=== PATIENT | female | born 2000 | race Caucasian/White ===

== ENCOUNTER 2019-06-09 07:03 | Outpatient (CLI) | payer OTHER, SELFPAY ==
--- NOTE | ~2019-06-09 | CT_ITS ---
EXAMINATION: CT abdomen pelvis w con EXAM DATE: 06/09/2019 07:38 INDICATION: Abnormal physical exam, bump found by brick setter while removing IUD. TECHNIQUE: Spiral CT of the abdomen and pelvis was performed following intravenous injection of 100 m L Omnipaque 350. Axial, coronal and sagittal images were reviewed. The dose-length product (DLP) fo r this examination was 1721.02 mGy-cm. The exposure was tailored according to patient size (auto mA exposure control), and iterative reconstruction (ASIR) was used as additional dose reduction techniqu e. There is no prior study for comparison. FINDINGS: There is large amount of low density colonic stool. There is fecal impaction with rectal va ult measuring over 10 cm in diameter. Consider constipation. Normal appendix. The liver, spleen, adr enal glands and pancreas are unremarkable. Gallbladder is unremarkable. No biliary obstruction. Po rtal and splenic veins are patent. Kidneys enhance symmetrically. There is no hydronephrosis. The u terus is being displaced anteriorly by the large amount of rectal stool. Ovaries are normal in size. There is IUD which appears to be centrally located within the endometrium, expected position. The bl adder is unremarkable. There is no retroperitoneal or pelvic lymphadenopathy. The stomach and small bowel are unremarkable. No free intraperitoneal gas. The heart is normal in size. There are no pericardial or pleural effusions. The lung bases are unremarkable. 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 IMPRESSION: 1. Fecal impaction, large amount of colonic stool; consider constipation. Reviewed, dictated and finalized at location A. [employer]
== END 2019-06-09 07:04 | disposition home or self-care (01) ==
PROVIDERS: PCP Emergency Medicine; Visit Provider Obstetrics & Gynecology
DX: R19.07 Generalized intra-abdominal and pelvic swelling, mass and lump (principal); K56.41 Fecal impaction
CPT/HCPCS: 74177; Q9967

== ENCOUNTER 2020-05-15 12:04 | Emergency (ER) | payer OTHER, SELFPAY ==
[2020-05-15 12:33] VITALS: PULSE 78; RESP 16; TEMP 36.7; O2SAT 98
--- NOTE | 2020-05-15 12:58 | ED.URI ---
HPI - URI/Sore Throat General Chief Complaint: Upper Respiratory Infection Stated Complaint: Cough/Upper respiratory Source: patient Mode of arrival: ambulatory Limitations: no limitations History of Present Illness HPI Narrative: Patient is a 19-year-old female who presents complaining of congestion, facial pressure and sore throat for approximately 9 to 10 days. She denies fever, cough, body aches, nausea or vomiting. She denies Covid exposure risk. She denies taking [id number] medications for symptom relief at this time MD elicited complaint: sore throat, nasal congestion and sinus pain Related Data Home Medications Medication Instructions Recorded Confirmed sertraline 50 mg PO DAILY 05/15/20 05/15/20 Allergies Allergy/AdvReac Type Severity Reaction Status Date / Time No Known Allergies Allergy Verified 05/15/20 12:16 Review of Systems Review of Systems: Narrative: CONSTITUTIONAL: Denies fever, chills, or sweats. EYES: Denies visual changes, redness, or discharge. ENT: Reports congestion and sore throat CARDIOVASCULAR: Denies chest pain, palpitations, or edema. RESPIRATORY: Denies cough or dyspnea. GASTROINTESTINAL: Denies abdominal pain, nausea, vomiting, or diarrhea. GENITOURINARY: Denies dysuria or hematuria. SKIN: Denies rash or itching. MUSCULOSKELETAL: Denies back pain, joint pain, or myalgia. NEUROLOGIC: Denies headache, numbness, dizziness, or weakness. PSYCHIATRIC: Denies anxiety or depression. [facility] Past Medical History Medical History (Updated 05/16/20 @ 00:00 by Veronica Pittman) Screening cholesterol level Surgical History Surgical History (Updated 05/16/20 @ 13:29 by DALLAS Rowan) No significant past surgical history Social History Social History (Updated 05/15/20 @ 13:00 by DALLAS Rowan) Smoking status: Current some day smoker Alcohol intake: never Substance use: current Substance use type: marijuana Gender identity (if verbalized by the patient): Female Comments At the time of signature, I have reviewed and agree with nursing past medical, surgical, social, and family history unless otherwise noted. Please see nursing chart for further information. There is no relevant family history pertinent to the presenting complaint. Exam Narrative: Exam Narrative: GENERAL: Well-appearing, well-nourished, and in no acute distress. HEAD: Normocephalic, atraumatic. EYES: EOMI. No redness or drainage. Conjunctiva are normal. ENT: Mucous membranes pink and moist. Nares clear. No rhinorrhea. Maxillary sinus tenderness with palpation TMs normal bilaterally. Throat mild erythema. Uvula midline. NECK: AROM. Supple. No lymphadenopathy. CHEST: No respiratory distress. HEART: Regular rate and rhythm. EXTREMITIES: Normal range of motion. SKIN: Warm, dry, no rash. NEURO: No focal deficits. Alert and oriented x3. Gait steady. PSYCH: Normal affect. No signs of depression or anxiety. Course Vital Signs Vital signs: Vital Signs Temperature 36.7 C 05/15/20 12:33 Pulse Rate 78 05/15/20 12:33 Respiratory Rate 16 05/15/20 12:33 Pulse Oximetry 98 05/15/20 12:33 Temperature 36.7 C 05/15/20 12:33 Pulse Rate 78 05/15/20 12:33 Respiratory Rate 16 05/15/20 12:33 Blood Pressure 135/81 05/15/20 13:05 Pulse Oximetry 98 05/15/20 12:33 Reviewed. MDM - URI/Sore Throat MDM Narrative Medical decision making narrative: Patient has sinus tenderness and pressure. Patient most likely has sinusitis and will be treated with Augmentin at this time. Rapid Covid and rapid strep are negative. Discussed with patient good hydration, Tylenol or ibuprofen for pain as well as completion of antibiotics. Patient to follow-up with her PCP in 3 to 5 days as needed. Patient is stable for discharge home with outpatient follow-up as discussed. Differential Diagnosis Differential diagnosis: Likely upper respiratory infection, sinusitis, viral infection
[2020-05-15 13:05] VITALS: BP 135/81
== END 2020-05-15 13:10 | disposition home or self-care (01) ==
PROVIDERS: Emergency Provider Nurse Practitioner; PCP Emergency Medicine
DX: J32.9 Chronic sinusitis, unspecified (principal); Z20.822 Contact with and (suspected) exposure to COVID-19; F17.200 Nicotine dependence, unspecified, uncomplicated
CPT/HCPCS: 87081; 87426; 87880; 99213; C9803; G0463

== ENCOUNTER 2021-03-04 12:47 | Emergency (ER) | payer OTHER, SELFPAY ==
[2021-03-04 12:56] VITALS: BP 141/48; PULSE 68; RESP 16; TEMP 36.7; O2SAT 99
--- NOTE | 2021-03-04 15:18 | ED.URI ---
HPI - URI/Sore Throat General Chief Complaint: Upper Respiratory Infection Stated Complaint: Congestion Time Seen by Provider: 03/04/21 15:18 Source: patient, RN notes reviewed and old records reviewed Mode of arrival: ambulatory Limitations: no limitations History of Present Illness HPI Narrative: 20-year-old female who presents to [facility] with complaints of 1 week duration of sore throat, sinus congestion, sinus drainage, ears popping with some feelings of dizziness. Patient states that she has been taking some Sudafed for her congestion and sinus drainage, denies any known fevers chills or sweats or any body aches. Patient states that she has had COVID vaccinations. MD elicited complaint: sore throat, rhinorrhea and nasal congestion Related Data Allergies Allergy/AdvReac Type Severity Reaction Status Date / Time No Known Allergies Allergy Verified 05/15/20 12:16 Review of Systems Review of Systems: CONSTITUTIONAL: Denies fever, chills, or sweats. EYES: Denies visual changes, redness, or discharge. ENT: Positive for rhinorrhea, congestion, sore throat, otalgia with ear popping CARDIOVASCULAR: Denies chest pain, palpitations, or edema. RESPIRATORY: Denies cough or dyspnea. GASTROINTESTINAL: Denies abdominal pain, nausea, vomiting, or diarrhea. GENITOURINARY: Denies dysuria or hematuria. SKIN: Denies rash or itching. MUSCULOSKELETAL: Denies back pain, joint pain, or myalgia. NEUROLOGIC: Denies headache, numbness, or weakness.some intermittent dizziness voiced PSYCHIATRIC:positive for history of anxiety or depression. All systems reviewed & are unremarkable except as noted in HPI and below PMFSH Past Medical History Medical History (Updated 03/06/21 @ 14:29 by Chetna Lockhart NP) Anxiety and depression History of sinus problem Screening cholesterol level Tonsillitis Surgical History Surgical History No significant past surgical history Family History Family History (Updated 03/06/21 @ 14:28 by Chetna Lockhart NP) Mother Hypertension Grandparent Diabetes mellitus Carcinoma of colon Ovarian cancer Social History Social History (Updated 03/06/21 @ 14:29 by Chetna Lockhart NP) Smoking packs per day: 0.5 Smoking cigarettes per day: 10.0 Years smoked: 6 Smoking pack-years: 3.00 Smoking status: Current every day smoker Alcohol intake: never Substance use: current Substance use type: marijuana Gender identity (if verbalized by the patient): Female Comments At time of signature, agree with nursing past medical, surgical, social and family history. There is no relevant family history pertinent to the presenting complaint Exam Narrative: GENERAL: Well-appearing, well-nourished, and in no acute distress. HEAD: Normocephalic, atraumatic. EYES: PERRLA and EOMI. ENT: Nares red with clear rhinorrhea no epistaxis. Mucous membranes moist.TM's dull light reflex, throat red no exudates or lesions tonsils enlarged and red NECK: Supple.lymphadenopathy CHEST: Clear to auscultation. No respiratory distress. SaO2 99% on room air HEART: Regular rate and rhythm. No murmur heard. Normal peripheral pulses. ABDOMEN: Soft, nontender, nondistended, normal active bowel sounds. EXTREMITIES: Normal range of motion. No edema. SKIN: Warm, dry, no rash. NEURO: No focal deficits. Alert and oriented x3. Course Vital Signs Vital signs: Vital Signs Temperature 36.7 C 03/04/21 12:56 Pulse Rate 68 03/04/21 12:56 Respiratory Rate 16 03/04/21 12:56 Blood Pressure 141/48 H 03/04/21 12:56 Pulse Oximetry 99 03/04/21 12:56 Temperature 36.7 C 03/04/21 12:56 Pulse Rate 68 03/04/21 12:56 Respiratory Rate 16 03/04/21 12:56 Blood Pressure 141/48 H 03/04/21 12:56 Pulse Oximetry 99 03/04/21 12:56 MDM - URI/Sore Throat Differential Diagnosis Differential diagnosis: Likely upper respiratory infection, sinusitis, viral inf
== END 2021-03-04 15:40 | disposition home or self-care (01) ==
PROVIDERS: Emergency Provider Registered Nurse; PCP Emergency Medicine
DX: J03.90 Acute tonsillitis, unspecified (principal); F17.210 Nicotine dependence, cigarettes, uncomplicated
CPT/HCPCS: 87081; 87880; 99213; G0463

== ENCOUNTER 2021-03-20 14:38 | Emergency (ER) | payer OTHER, SELFPAY ==
[2021-03-20 14:47] VITALS: BP 142/69; PULSE 71; RESP 16; TEMP 37.2; O2SAT 99
--- NOTE | 2021-03-20 15:34 | ED.GENADULT ---
HPI - General Adult General Chief complaint: Upper Respiratory Infection Stated complaint: congestion/sob Source: patient Mode of arrival: ambulatory Limitations: no limitations History of Present Illness HPI narrative: Patient is a 20-year-old female who presents to the urgent care via POV for evaluation of upper respiratory symptoms that have been present for approximately 2 to 3 days. Additionally, she reports chest tightness, shortness of breath, and rhinorrhea. Denies taking OTC meds for symptoms. Steamy showers improves symptoms. Nothing worsens symptoms. Patient states she was seen at this facility approximately 2 weeks ago and was treated for sinusitis and tonsillitis with amoxicillin. Patient states her symptoms resolved during antibiotic treatment. She is fully vaccinated. She reports exposure to her boyfriend who was exhibiting similar signs and symptoms. She is requesting documentation for work absence. Related Data Allergies Allergy/AdvReac Type Severity Reaction Status Date / Time No Known Allergies Allergy Verified 03/20/21 15:03 Review of Systems Review of Systems: Denies history of hypertension, renal insufficiency, diabetes mellitus COPD, bronchitis, asthma, and pneumonia. Reports current tobacco use. Pertinent negatives: fever, sweats, chills, change in appetite, fatigue, skin color changes, headache, nasal congestion, dizziness, lymphadenopathy, ear pain/drainage, chest pain, heart murmurs, heart palpitations, wheezing, cyanosis, hemoptysis, hoarseness, orthopnea, pleuritic pain, nausea, vomiting, diarrhea, and myalgias. PMF Past Medical History Medical History Anxiety and depression History of sinus problem Screening cholesterol level Tonsillitis Surgical History Surgical History No significant past surgical history Family History Family History Mother Hypertension Grandparent Diabetes mellitus Carcinoma of colon Ovarian cancer Social History Social History Smoking packs per day: 0.5 Smoking cigarettes per day: 10.0 Years smoked: 6 Smoking pack-years: 3.00 Smoking status: Current every day smoker Alcohol intake: never Substance use: current Substance use type: marijuana Gender identity (if verbalized by the patient): Female Comments I have reviewed and agree with the patient's past medical, surgical, social, and family hx as documented by the RN. There is no relevant family history pertinent to the presenting complaint. Exam Narrative: GENERAL: Well-appearing, well-nourished, and in no acute distress. HEAD: Normocephalic, atraumatic. No sinus tenderness or facial swelling appreciated. EYES: PERRLA and EOMI. No evidence of erythema, swelling, or drainage. ENT: Bilateral external ears and ear canals normal. Bilateral TMs are normal.No TM perforation. Nares clear, no rhinorrhea or epistaxis. Bilateral turbinates without erythema/ swelling. Mucous membranes moist and pink. Uvula is midline without erythema and swelling. No evidence of petechial rash, cobblestoning, lesions, ulcers, erythema, swelling, exudates, peritonsillar abscess, tenting, or drooling. Breath odor and voice normal. NECK: Supple. No Lymphadenopathy or nuchal rigidity appreciated. CHEST: Bilateral lung ratliff are clear to auscultation. No respiratory distress. No evidence of cough or pleuritic cp upon examination. HEART: Regular rate and rhythm. No murmur, gallop, or rub heard. EXTREMITIES: Normal range of motion. No edema. SKIN: Warm, dry, no rash. NEURO: No focal deficits. Alert and oriented x3. Course Course Emergency Course: The patient/guardian displays adequate decision making capability and despite a detailed discussion of alternatives, benefits,
== END 2021-03-20 16:05 | disposition home or self-care (01) ==
PROVIDERS: Emergency Provider Nurse Practitioner Family; PCP Emergency Medicine
DX: J06.9 Acute upper respiratory infection, unspecified (principal); F17.210 Nicotine dependence, cigarettes, uncomplicated
CPT/HCPCS: 99213; G0463

== ENCOUNTER 2021-05-09 17:09 | Emergency (ER) | payer BC, OTHER, SELFPAY ==
--- NOTE | ~2021-05-09 | XR_ITS ---
EXAMINATION: XR chest 2V DATE: 05/09/2021 18:05 INDICATION: Shortness of breath TECHNIQUE: PA and lateral views of the chest are obtained. COMPARISON: None available FINDINGS: The lungs are free of acute opacities. There is no pleural effusion or pneumothorax. The ca rdiomediastinal silhouette is normal. The visualized bones and soft tissues are unremarkable. IMPRESSION: 1. No acute cardiopulmonary abnormality. Reviewed, dictated and finalized at location F. [employer]
[2021-05-09 17:16] VITALS: BP 124/43; PULSE 70; RESP 20; TEMP 36; O2SAT 99
--- NOTE | 2021-05-09 18:15 | ED.URI ---
HPI - URI/Sore Throat General Chief Complaint: Upper Respiratory Infection Stated Complaint: sob/congestioon/fever Time Seen by Provider: 05/09/21 17:31 Source: patient and RN notes reviewed Mode of arrival: ambulatory Limitations: no limitations History of Present Illness HPI Narrative: Patient presents today complaining of a 1.5-month history of occasional cough, headache, subjective fever that is negative when she checks it, fatigue, postnasal drainage. She also reports a 2-week history of shortness of breath with exertion. She mentioned these symptoms to her doctor last month when she was in for a visit and was told to take Sudafed and has been doing so with mild relief. Patient was sent home from work today and was told to be evaluated before she can come back. Patient smokes half pack per day. MD elicited complaint: cough Related Data Allergies Allergy/AdvReac Type Severity Reaction Status Date / Time No Known Allergies Allergy Verified 04/02/21 11:26 Review of Systems Review of Systems: CONSTITUTIONAL: Denies body aches, chills, or sweats.+ Subjective fever, fatigue EYES: Denies visual changes, redness, or discharge. ENT: Denies rhinorrhea, congestion, sore throat, or otalgia.+ Postnasal drip CARDIOVASCULAR: Denies chest pain, palpitations, or edema. RESPIRATORY: + Occasional cough, shortness of breath with exertion GASTROINTESTINAL: Denies abdominal pain, nausea, vomiting, or diarrhea. GENITOURINARY: Denies dysuria or hematuria. SKIN: Denies rash, itching, or wounds. MUSCULOSKELETAL: Denies back pain, joint pain, or myalgia. NEUROLOGIC: Denies numbness, tingling, or weakness.+ Headache PSYCH: Denies depression or anxiety. [facility] Past Medical History Medical History Anxiety and depression History of sinus problem Screening cholesterol level Tonsillitis Surgical History Surgical History No significant past surgical history Family History Family History Mother Hypertension Grandparent Diabetes mellitus Carcinoma of colon Ovarian cancer Social History Social History Smoking packs per day: 0.5 Smoking cigarettes per day: 10.0 Years smoked: 6 Smoking pack-years: 3.00 Smoking status: Current every day smoker Alcohol intake: never Substance use: current Substance use type: marijuana Gender identity (if verbalized by the patient): Female Comments At time of signature, I have reviewed and agree with nursing past medical, surgical, social and family history unless otherwise noted. Please see nursing chart for further information. There is no relevant family history pertinent to the presenting complaint Exam Narrative: GENERAL: Well-appearing, well-nourished, and in no acute distress. HEAD: Normocephalic, atraumatic. EYES: EOMI. No redness or drainage. Conjunctivae normal. ENT: Mucous membranes pink and moist. Nares clear. No rhinorrhea. TMs normal bilaterally. Throat normal. Uvula midline. NECK: Normal AROM. Supple. No lymphadenopathy. CHEST: No respiratory distress. Clear to auscultation. HEART: Regular rate and rhythm. No murmur appreciated. Normal peripheral pulses. EXTREMITIES: Normal range of motion. No edema. SKIN: Warm, dry, no rash. Capillary refill normal. Normal skin turgor. NEURO: No focal deficits. Alert and oriented x3. Gait steady. PSYCH: Normal affect. No signs of depression or anxiety. Course Course Level of Care: Express Care Visit Vital Signs Vital signs: Vital Signs Temperature 96.8 F L 05/09/21 17:16 Pulse Rate 70 05/09/21 17:16 Respiratory Rate 20 05/09/21 17:16 Blood Pressure 124/43 L 05/09/21 17:16 Pulse Oximetry 99 05/09/21 17:16 Temperature 96.8 F L 05/09/21 17:16 Pulse Rate 70 0
== END 2021-05-09 18:34 | disposition home or self-care (01) ==
PROVIDERS: Emergency Provider Nurse Practitioner; PCP Emergency Medicine
DX: B34.9 Viral infection, unspecified (principal); F17.210 Nicotine dependence, cigarettes, uncomplicated
CPT/HCPCS: 71046; 81025; 99213; G0463

== ENCOUNTER 2021-07-18 19:19 | Emergency (ER) | payer BC, SELFPAY ==
[2021-07-18 19:41] VITALS: BP 143/70; PULSE 58; RESP 16; TEMP 35.9; O2SAT 99
--- NOTE | 2021-07-18 20:36 | ED.URI ---
HPI - URI/Sore Throat General Chief Complaint: Upper Respiratory Infection Stated Complaint: weakness/cough Time Seen by Provider: 07/18/21 20:36 Source: patient Mode of arrival: ambulatory Limitations: no limitations History of Present Illness HPI Narrative: Patient is a 20-year-old history of anxiety, depression, bipolar disorder on venlafaxine, presenting to the emergency department for evaluation of multiple symptoms including fatigue, generalized weakness, slight cough, rhinorrhea. Patient was seen at an urgent care today with a negative x-ray, diagnosed with a likely viral infection. Patient currently denying any chest pain or shortness of breath. Denies leg swelling or calf pain. Denies recent surgery, immobility or history of coagulopathy. Patient is ambulatory, states that she feels weak all over but denies any numbness. She reports mild headache without vision changes. She denies nausea, vomiting, chest pain, abdominal pain. Patient denies history of Covid. States she is vaccinated with booster. Denies recent sick contact. Denies dysuria, hematuria or urinary frequency. Denies diarrhea or constipation. Patient states she started taking venlafaxine 2 months ago, denies any other recent medication changes. Related Data Allergies Allergy/AdvReac Type Severity Reaction Status Date / Time No Known Allergies Allergy Verified 04/02/21 11:26 Review of Systems Review of Systems: CONSTITUTIONAL: Reports subjective fever and chills, denies feeling febrile currently EYES: Denies visual changes, redness, or discharge. ENT: Reports congestion, denies sore throat or otalgia CARDIOVASCULAR: Denies chest pain, palpitations, or edema. RESPIRATORY: Reports cough that mostly resolved yesterday, denies current shortness of breath GASTROINTESTINAL: Denies abdominal pain, nausea, vomiting, or diarrhea. Reports decreased appetite. GENITOURINARY: Denies dysuria or hematuria. SKIN: Denies rash or itching. MUSCULOSKELETAL: Denies back pain, joint pain reports myalgia NEUROLOGIC: Denies headache, numbness, reports feeling diffusely weak PSYCHIATRIC: Reports history of anxiety PMFSH Past Medical History Medical History Anxiety and depression History of sinus problem Screening cholesterol level Tonsillitis Surgical History Surgical History No significant past surgical history Family History Family History Mother Hypertension Grandparent Diabetes mellitus Carcinoma of colon Ovarian cancer Social History Social History Smoking packs per day: 0.5 Smoking cigarettes per day: 10.0 Years smoked: 6 Smoking pack-years: 3.00 Smoking status: Current every day smoker Alcohol intake: never Substance use: current Substance use type: marijuana Gender identity (if verbalized by the patient): Female Exam Narrative: GENERAL: Awake, alert, conversant HEAD: Normocephalic, atraumatic. EYES: PERRLA and EOMI. ENT: Nares clear, no rhinorrhea or epistaxis. Mucous membranes moist. NECK: Supple. CHEST: No respiratory distress, breathing even and non labored, no chest wall tenderness HEART: Regular rate, sinus rhythm ABDOMEN:Non distended, non tender EXTREMITIES: Normal range of motion. No edema. SKIN: Warm, dry, no rash. NEURO:No focal deficits. Alert and oriented x3. Finger to nose intact bilaterally. EOMs intact without nystagmus. No facial droop/asymmetry noted bilaterally. Grimace intact. Intact sensation in face. Hearing intact bilaterally. Shoulder shrug intact. Strength 5/5 bilateral upper extremities. Strength 5/5 bilateral lower extremities. Reflexes 2+ patellar. Heel to anand intact bilaterally. Ambulatory with a narrow base, steady gait, no ataxia. Course Vital Signs Vital sign
--- NOTE | 2021-07-18 20:46 | ECG_ITS ---
Measurements Intervals [place] Rate: 55 P: 32 SC: 142 QRS: 83 QRSD: 99 T: 53 QT: 446 QTc: 427 Interpretive Statements SINUS BRADYCARDIA BORDERLINE ECG NO PREVIOUS ECG AVAILABLE FOR COMPARISON Electronically Signed On 07-19-2021 17:06:00 CDT by Omid Soriano M.D.
[2021-07-18 21:44] LABS: Basophils Absolute Auto 0.1 K/mm3 (0.0-0.1); Basophils Percent Auto 0.9 % (0.2-1.2); Eosinophils Absolute Auto 0.5 K/mm3 (0-0.3); Eosinophils Percent Auto 5.3 % (0-4.4); Hematocrit 44.6 % (37.0-47.0); Hemoglobin 14.8 g/dL (12.0-15.0); Immature Granulocyte Absolute 0.02 K/mm3 (0.00-0.031); Immature Granulocyte Percent A 0.2 % (0-0.5); Lymphocytes Absolute Auto 2.91 K/mm3 (0.9-3.2); Lymphocytes Percent Auto 32.7 % (18.3-44.2); Mean Corpuscular HGB Conc 33.2 g/dl (32-36); Mean Corpuscular Hemoglobin 31.8 pg (26-34); Mean Corpuscular Volume 95.7 fl (80-100); Mean Platelet Volume 8.6 fl (7.4-10.4); Monocytes Absolute Auto 0.5 K/mm3 (0.1-0.6); Monocytes Percent Auto 5.8 % (2.6-8.5); Neutrophils Absolute Auto 4.9 K/mm3 (1.3-6.7); Neutrophils Percent Auto 55.1 % (45.5-73.1); Platelet Count Result 276 k/mm3 (150-375); Red Blood Count 4.66 M/mm3 (4.2-5.4); Red Cell Distribution Width 13.1 % (11.5-14.5); White Blood Count 8.9 K/mm3 (4.5-10.0)
[2021-07-18 21:52] LABS: Alanine Aminotransferase 40 U/L (4-35); Albumin Level 4.3 g/dL (3.5-5.1); Alkaline Phosphatase 74 U/L (38-126); Anion Gap 7 mmol/L (8-16); Aspartate Amino Transferase 35 U/L (14-36); Bilirubin,Total 0.3 mg/dL (0.2-1.3); Blood Urea Nitrogen 14 mg/dL (7-17); Calcium 8.8 mg/dL (8.4-10.2); Carbon Dioxide 26 mmol/L (22-30); Chloride 107 mmol/L (98-107); Creatine Kinase 84 U/L (30-135); Estimated Glomerular Filt Rate > 60; Glucose 97 mg/dL (65-110); Potassium 3.8 mmol/L (3.4-5.0); Sodium 140 mmol/L (137-145)
[2021-07-18 22:04] LABS: Troponin I < 0.012 ng/mL (0.000-0.034)
[2021-07-18 22:05] LABS: SARS-CoV-2 RNA PCR Negative
[2021-07-18 23:14] VITALS: BP 128/70; PULSE 76; RESP 16; TEMP 36.3; O2SAT 98
== END 2021-07-18 23:15 | disposition home or self-care (01) ==
PROVIDERS: Emergency Provider Emergency Medicine; PCP Emergency Medicine
DX: R53.1 Weakness (principal); M79.10 Myalgia, unspecified site; Z20.822 Contact with and (suspected) exposure to COVID-19; R41.9 Unspecified symptoms and signs involving cognitive functions and awareness; F31.9 Bipolar disorder, unspecified; F17.210 Nicotine dependence, cigarettes, uncomplicated; R00.1 Bradycardia, unspecified
CPT/HCPCS: 36415; 80053; 82550; 84484; 85025; 87081; 87804; 87880; 93005; 99284; C9803; U0003; U0005

== ENCOUNTER 2021-09-09 17:23 | Emergency (ER) | payer BC, SELFPAY ==
--- NOTE | ~2021-09-09 | XR_ITS ---
EXAM: XR knee RT min 4V DATE: 09/09/2021 17:57 HISTORY: TWISTED RT KNEE, PAIN MEDIAL . COMPARISON: 03/22/2019. FINDINGS: Normal mineralization. No fracture or dislocation. No lytic or blastic lesion. Joint space s are maintained. No erosion or periosteal change. Soft tissues within normal limits. IMPRESSION: No acute osseous finding in the right knee. Reviewed, dictated and finalized at location K.
--- NOTE | 2021-09-09 17:31 | ED.LOWEXIN ---
HPI - Extremity Injury (Lower) General Chief Complaint: Extremity Injury, Lower Stated Complaint: Right Knee Pain Time Seen by Provider: 09/09/21 17:32 Source: patient, RN notes reviewed and old records reviewed Mode of arrival: ambulatory Limitations: no limitations History of Present Illness HPI Narrative: 20-year-old female presents to the [facility] with complaints of right knee pain, has had chronic knee pain for several years. Reports having an appointment with Dr. Roberts on September 18. States that she works 7 days straight, was not always wearing her brace. Reports significant swelling when she worked on her feet for 7 days straight. Does have good range of motion. No swelling distal to pain Related Data Allergies Allergy/AdvReac Type Severity Reaction Status Date / Time No Known Allergies Allergy Verified 09/09/21 17:25 Review of Systems Review of Systems: All systems reviewed & are unremarkable except as noted in HPI and below Constitutional: Constitutional: Reports no additional constitutional complaints Eyes: Eyes: Reports no additional eye complaints ENT: Reports system reviewed and no additional complaints, except as documented Cardiovascular: Cardiovascular: Reports no additional cardiovascular complaints Respiratory: Respiratory: Reports no additional respiratory complaints Gastrointestinal: Gastrointestinal: Reports no additional gastrointestinal complaints Musculoskeletal: Musculoskeletal: Reports as per HPI and Reports arthralgias (Right knee) Integumentary/Breasts: Skin/Breast: Reports system reviewed and no additional complaints, except as docu Neurologic: Reports system reviewed and no additional complaints, except as documented Psychiatric: Psychiatric: Reports no additional psychiatric complaints Allergic/Immunologic: Allergic/Immunologic: Reports no additional allergic/immunologic complaints [facility] Past Medical History Medical History Anxiety and depression History of sinus problem Screening cholesterol level Tonsillitis Surgical History Surgical History No significant past surgical history Family History Family History Mother Hypertension Grandparent Diabetes mellitus Carcinoma of colon Ovarian cancer Social History Social History Smoking packs per day: 0.5 Smoking cigarettes per day: 10.0 Years smoked: 6 Smoking pack-years: 3.00 Smoking status: Current every day smoker Alcohol intake: never Substance use: current Substance use type: marijuana Gender identity (if verbalized by the patient): Female Comments At the time of my signature, I reviewed and agree with the nursing past medical, surgical, social, and family history. There is no relevant family history pertinent to the patient complaint. Exam Const: General: healthy appearing, no acute distress and alert Nutritional Appearance: well nourished Orientation/consciousness: patient oriented x3 Limitations: no limitations HENMT: Head: normal to inspection Ears: external ears normal Eyes: Pupils: Equal, round and reactive pupils present Neck: Neck: normal visual inspection, no lymphadenopathy and no meningeal signs Chest: Chest palpation & inspection: normal inspection of the chest Resp: Effort & Inspection: normal respiratory effort Auscultation: clear to auscultation bilaterally Cardio: Rate: regular rate Rhythm: regular rhythm Skin: General skin exam: normal color Rashes: no rashes Neuro: General: patient oriented x3, moves all extremities, no meningeal signs and no focal motor deficits Cranial nerves: Yes Equal, round and reactive pupils present Speech: normal speech Gait exam (Neuro): Normal gait present Extrem: Right lower extremity: knee Details: tenderne
[2021-09-09 17:33] VITALS: BP 118/75; PULSE 77; RESP 16; TEMP 36.2; O2SAT 100
== END 2021-09-09 18:18 | disposition home or self-care (01) ==
PROVIDERS: Emergency Provider Nurse Practitioner; PCP Emergency Medicine
DX: M25.561 Pain in right knee (principal); F17.210 Nicotine dependence, cigarettes, uncomplicated; F41.9 Anxiety disorder, unspecified; F32.A Depression, unspecified
CPT/HCPCS: 73564; 99213; G0463

== ENCOUNTER 2023-05-14 11:10 | Emergency (ER) | payer OTHER, SELFPAY ==
[2023-05-14 11:24] VITALS: BP 131/71; PULSE 64; RESP 16; TEMP 36.6; O2SAT 100
--- NOTE | 2023-05-14 11:31 | ED.URI ---
HPI - URI/Sore Throat General Chief Complaint: Upper Respiratory Infection Stated Complaint: Cough Source: patient, RN notes reviewed and old records reviewed Mode of arrival: ambulatory Limitations: no limitations History of Present Illness HPI Narrative: 22-year-old female presents to [facility] with complaints of cough, congestion, sinus pressure for over 2 weeks. Patient taking [id number] medications with no relief. Patient states now having sinus pain, feeling feverish, and myalgia. Patient denies chest pain, shortness of breath, dizziness, weakness. MD elicited complaint: cough and nasal congestion Pertinent past history: asthma Onset (ago): week(s) (2) Consistency: constant and progressively worsening Severity: moderate Description of mucous: green Able to tolerate fluids by mouth: Yes Exacerbating factors: nothing Relieving factors: nothing Treatments prior to arrival: acetaminophen, ibuprofen and cold medicine Related Data Allergies Allergy/AdvReac Type Severity Reaction Status Date / Time No Known Allergies Allergy Verified 09/03/22 10:36 Review of Systems Constitutional: Constitutional: Reports no additional constitutional complaints, Reports body ache(s), Denies chills, Denies fatigue, Denies fever(s) and Reports headache(s) Eyes: Eyes: Reports no additional eye complaints and Denies blurry vision ENT: Reports system reviewed and no additional complaints, except as documented, Denies vertigo, Denies dizziness, Denies ear discharge, Denies otalgia, Denies facial pain, Reports headache(s), Reports nasal congestion, Reports nasal discharge, Reports sinus pain, Reports sinus pressure and Denies sore throat Cardiovascular: Cardiovascular: Reports no additional cardiovascular complaints, Denies chest pain, Denies chest pain at rest, Denies rapid heart rate and Denies dyspnea Respiratory: Respiratory: Reports no additional respiratory complaints, Reports chest congestion, Reports cough, Denies pain on inspiration, Denies pain with cough and Denies dyspnea Gastrointestinal: Gastrointestinal: Denies abdominal pain, Denies diarrhea, Denies nausea and Denies vomiting Integumentary/Breasts: Skin/Breast: Denies rash Neurologic: Reports system reviewed and no additional complaints, except as documented, Denies vertigo, Denies dizziness and Denies headache(s) Endocrine: Endocrine: Denies fatigue PMF Past Medical History Medical History Anxiety and depression History of sinus problem Screening cholesterol level Tonsillitis Surgical History Surgical History No significant past surgical history Family History Family History Mother Hypertension Grandparent Diabetes mellitus Carcinoma of colon Ovarian cancer Social History Social History Smoking packs per day: 0.5 Smoking cigarettes per day: 10.0 Years smoked: 6 Smoking pack-years: 3.00 Smoking status: Current every day smoker Alcohol intake: never Substance use: current Substance use type: marijuana Lack of Transportation: No Lack of Food: Never True Current Housing: I Have Housing Concerned About Future Housing: No Difficulty Paying Gas/Electric Bills: No Difficulty Paying for Meds: No Currently Unemployed: No Education: High School Diploma/GED Difficulty w/ Childcare or Family Care: No Gender identity (if verbalized by the patient): Female Comments At the time of my signature, I reviewed and agree with the nursing past medical, surgical, social, and family history. There is no relevant family history pertinent to the patient complaint. Exam Const: General: cooperative, healthy appearing, no acute distress and well nourished Nutritional Appearance: well nourished Orientation/consci
== END 2023-05-14 11:40 | disposition home or self-care (01) ==
PROVIDERS: Emergency Provider Registered Nurse; PCP Emergency Medicine
DX: J01.90 Acute sinusitis, unspecified (principal); B96.89 Other specified bacterial agents as the cause of diseases classified elsewhere; F17.210 Nicotine dependence, cigarettes, uncomplicated
CPT/HCPCS: 99213; G0463

== ENCOUNTER 2024-01-06 11:13 | Emergency (ER) | payer OTHER, SELFPAY ==
--- NOTE | ~2024-01-06 | XR_ITS ---
EXAMINATION: XR foot LT min 3V DATE: 01/06/2024 12:21 INDICATION: Left foot pain and swelling. TECHNIQUE: 4 views of left foot were obtained. COMPARISON: None. FINDINGS: Alignment is normal. No fracture. There is mild osteoarthritis of talonavicular joint. Ther e are enthesophytes at the posterior and plantar aspects of calcaneal tuberosity. IMPRESSION: 1. Mild osteoarthritis of talonavicular joint. Reviewed, dictated and finalized at location A.
--- NOTE | ~2024-01-06 | XR_ITS ---
EXAMINATION: XR ankle LT min 3V DATE: 01/06/2024 12:21 INDICATION: Left ankle pain and swelling. TECHNIQUE: 3 views of left ankle were obtained. COMPARISON: None. FINDINGS: Alignment is normal. No fracture. There is mild osteoarthritis of talonavicular joint. Ther e are enthesophytes at the posterior and plantar aspects of calcaneal tuberosity. IMPRESSION: 1. No fracture. Reviewed, dictated and finalized at location A. IMPRESSION: 1. No fracture.
[2024-01-06 11:14] VITALS: BP 142/72; PULSE 61; RESP 19; TEMP 37.1; O2SAT 100
--- NOTE | 2024-01-06 12:13 | ED.GENADULT ---
HPI - General Adult General Chief complaint: Extremity Injury, Lower Stated complaint: Left Leg Pain Source: patient Mode of arrival: ambulatory Limitations: no limitations History of Present Illness HPI narrative: Patient presents for evaluation of an injury to the LLE that occurred about 2 weeks ago. She indicates she bumped her left ankle against an unknown object. She does not remember any specific details from the time of the injury. She now has pain, swelling and bruising in the left ankle, with migration of her symptoms into the foot. She rates her pain 5/10 severity. Pain is worse with prolonged periods of time walking. She tried taking ibuprofen 400mg for her symptoms. She has also been applying ice and elevating the extremity. Related Data Home Medications Medication Instructions Recorded Confirmed venlafaxine 150 mg 150 mg PO DAILY 01/06/24 01/06/24 capsule,extended release 24 hr Allergies Allergy/AdvReac Type Severity Reaction Status Date / Time No Known Allergies Allergy Verified 01/06/24 11:14 Review of Systems Review of Systems: CONSTITUTIONAL: Denies fever, chills, or sweats. EYES: Denies visual changes, redness, or discharge. ENT: Denies rhinorrhea, congestion, sore throat, or otalgia. CARDIOVASCULAR: Denies chest pain, palpitations, or edema. RESPIRATORY: Denies cough or dyspnea. GASTROINTESTINAL: Denies abdominal pain, nausea, vomiting, or diarrhea. GENITOURINARY: Denies dysuria or hematuria. SKIN: Reports bruising to the left ankle and foot MUSCULOSKELETAL: reports pain and swelling in the left ankle and foot NEUROLOGIC: Denies headache, numbness, dizziness, or weakness. PSYCHIATRIC: Denies anxiety or depression. [facility] Past Medical History Medical History Anxiety and depression History of sinus problem Screening cholesterol level Tonsillitis Surgical History Surgical History No significant past surgical history Family History Family History Mother Hypertension Grandparent Diabetes mellitus Carcinoma of colon Ovarian cancer Social History Social History Smoking packs per day: 0.5 Smoking cigarettes per day: 10.0 Years smoked: 6 Smoking pack-years: 3.00 Smoking status: Current every day smoker Alcohol intake: never Substance use: current Substance use type: marijuana Lack of Transportation: No Lack of Food: Never True Current Housing: I Have Housing Concerned About Future Housing: No Difficulty Paying Gas/Electric Bills: No Difficulty Paying for Meds: No Currently Unemployed: No Education: High School Diploma/GED Difficulty w/ Childcare or Family Care: No Gender identity (if verbalized by the patient): Female Exam Narrative: GENERAL: Well-appearing, well-nourished, and in no acute distress. HEAD: Normocephalic, atraumatic. EYES: PERRLA and EOMI. ENT: Nares clear, no rhinorrhea or epistaxis. Mucous membranes moist. Oropharynx without tonsillar hypertrophy exudate or other lesions. Bilateral TMs pearly quiroga nonbulging NECK: Supple. No adenopathy or masses. No carotid bruits or JVD CHEST: Clear to auscultation. No respiratory distress. No wheezes rales or rhonchi HEART: Regular rate and rhythm. No murmur heard. Normal peripheral pulses. ABDOMEN: Soft, nontender, nondistended, normal active bowel sounds. EXTREMITIES: There is tenderness over the medial aspect of the left ankle. She is able to dorsi and plantarflex the left foot. Trace swelling present. No tenderness in left foot. SKIN: There is ecchymosis noted to the medial aspect of the left lower leg and ankle NEURO: No focal deficits. Alert and oriented x3. PSYCH: Normal mood and affect. Course Course Emergency Cour
== END 2024-01-06 12:45 | disposition home or self-care (01) ==
PROVIDERS: Emergency Provider Nurse Practitioner; PCP Emergency Medicine
DX: S90.02XA Contusion of left ankle, initial encounter (principal); W22.8XXA Striking against or struck by other objects, initial encounter; F41.9 Anxiety disorder, unspecified; F32.A Depression, unspecified; F17.210 Nicotine dependence, cigarettes, uncomplicated; F12.90 Cannabis use, unspecified, uncomplicated
CPT/HCPCS: 73610; 73630; 99213; G0463

== ENCOUNTER 2024-08-18 16:04 | Emergency (ER) | payer OTHER, SELFPAY ==
[2024-08-18 16:17] VITALS: BP 139/62; PULSE 76; RESP 20; TEMP 36.3; O2SAT 98
--- NOTE | 2024-08-18 16:32 | ED_ITS ---
HPI - Back Pain/Injury General Chief Complaint: Back Pain/Injury Stated Complaint: Back Pain/Numbness Time Seen by Provider: 08/18/24 16:05 Source: patient Mode of arrival: ambulatory Limitations: no limitations History of Present Illness HPI Narrative: Patient presents to [facility] for complaints of lower back pain off the left side. She states that ten years ago she had sciatic nerve pain and this feels very similar. She has been taking Ibuprofen over the counter, with minimal relief. Endorses having numbness to her left lateral anand. Denies any loss of bladder or bowel function. Related Data Allergies Allergy/AdvReac Type Severity Reaction Status Date / Time No Known Allergies Allergy Verified 08/18/24 16:05 Review of Systems Review of Systems: CONSTITUTIONAL: Denies body aches, fever, chills EYES: Denies visual changes CARDIOVASCULAR: Denies chest pain, palpitations, or edema. RESPIRATORY: Denies cough or dyspnea. GASTROINTESTINAL: Denies abdominal pain, nausea, vomiting, or diarrhea. SKIN: Denies rash, itching, or wounds. MUSCULOSKELETAL: Reports back pain to left lower back that radiates now her left leg. NEUROLOGIC: Denies headache, numbness, tingling, or weakness. All systems reviewed & are unremarkable except as noted in HPI and below PMFSH Past Medical History Medical History Chondromalacia patellae of right knee Tonsillitis History of sinus problem Anxiety and depression Screening cholesterol level Surgical History Surgical History No significant past surgical history Family History Family History Mother Hypertension Grandparent Diabetes mellitus Carcinoma of colon Ovarian cancer Social History Social History Smoking packs per day: 0.5 Smoking cigarettes per day: 10.0 Years smoked: 6 Smoking pack-years: 3.00 Smoking status: Current every day smoker Alcohol intake: never Substance use: current Substance use type: marijuana Lack of Transportation: No Lack of Food: Never True Current Housing: I Have Housing Concerned About Future Housing: No Difficulty Paying Gas/Electric Bills: No Difficulty Paying for Meds: No Currently Unemployed: No Education: High School Diploma/GED Difficulty w/ Childcare or Family Care: No Gender identity (if verbalized by the patient): Female Comments At time of signature, I have reviewed and agree with nursing past medical, surgical, social and family history unless otherwise noted. Please see nursing chart for further information. There is no relevant family history pertinent to the presenting complaint. Exam Narrative: GENERAL: Well-appearing, well-nourished, and in no acute distress. HEAD: Normocephalic, atraumatic. EYES: ?Conjunctivae clear NECK: Supple. full ROM CHEST: Speaks in full sentences. No respiratory distress. HEART: Regular rate and rhythm. Normal and equal peripheral pulses. MUSC: ?Vertebral point tenderness to L5. BLEs with normal strength and sensation, normal range of motion, but endorses pain with movement. ? No edema or ecchymosis, ? No open wounds, ?skin tenting, ?or obvious deformity; alignment normal, ?pulse palpable and equal bilaterally, skin warm, dry, pink. Capillary refill less than 3 seconds. ?Gait steady. SKIN: Warm, dry, no rash. NEURO: Alert and oriented x3.? Course Course Level of Care: Express Care Visit Vital Signs Vital signs: Vital Signs Temperature 97.3 F L 08/18/24 16:17 Pulse Rate 76 08/18/24 16:17 Respiratory Rate 20 08/18/24 16:17 Blood Pressure 139/62 08/18/24 16:17 Pulse Oximetry 98 08/18/24 16:17 Oxygen Delivery Room Air 08/18/24 16:17 Temperature 97.3 F L 08/18/24 16:17 Pulse Rate 76 08/18/24 16:17 Respiratory Rate 20 08/18/24 16:17 Blood Pressure 139/62 08/18/24 16:17 Pulse Oximetry 98 08/18/24 16:17 Oxygen Delivery Room Air 08/18/24 16:17 reviewed MDM - Back Pain/Injury MDM Narrative Medical decision making narrative: Discussed physical exam findings. No risk factors or findings concerning for epidural abscess, diskitis, vertebral osteomyelitis, cord compression, cauda equina, vertebral fracture or bone malignancy, AAA, or pyelonephritis. Patient instructed to consider further imaging and workup through their primary care physician as an outpatient if symptoms persist. Advised supportive measures and signs/symptoms to go to the ER. Pt is appropriate for outpt treatment and follow up. Differential Diagnosis Differential diagnosis: Likely lumbar radiculopathy, sciatica and strain of lumbar region Critical Care Time Critical Care Time Critical Care Time: No Discharge Plan Discharge Clinical Impression: Strain of lumbar region Qualifiers: Encounter type: initial encounter Qualified Code(s): S39.012A - Strain of muscle, fascia and tendon of lower back, initial encounter Patient Disposition: Home Condition: Stable Instructions: Acute Low Back Pain (ED) Additional Instructions: Avoid lifting. pushing. pulling, or anything that worsens the pain. Walking and other gentle exercising several times a week has been shown to improve back pain; bed rest is not recommended. Take Motrin 600-800mg every 6-8 hours with food for the next 2-3 days, along with Tylenol 1000mg every 8 hours Take muscle relaxers every 8 hours as needed for muscle spasm- do not drive or make any important decisions while on this medication for it can make you drowsy. Over the counter pain cream like icy/hot or biofreeze, or Salon pas/lidocaine 4% patch. You may apply heat or cold to the area as needed. Baclofen can make you drowsy. Do not operate heavy machinery or drive until you know how this medication effects you. Please follow up with your Primary Care Doctor within 48-72 hours - call for an appointment. If you experience any worsening pain, swelling, numbness, weakness please go to ER. Contact your doctor or go to the emergency department if you develop problems with bladder or bowel function, weak Patient Language: Lithuanian Prescriptions: New baclofen 10 mg tablet 10 mg PO TID Qty: 14 0RF prednisone 50 mg tablet 50 mg PO DAILY 5 Days Qty: 5 0RF No Action venlafaxine 150 mg capsule,extended release 24hr 150 mg PO DAILY Qty: 90 2RF Follow-up/Referrals: Олег Whitt MD [Primary Care Provider] - Stand Alone Forms: Work/School Release IP Time of Disposition: 16:39
== END 2024-08-18 16:45 | disposition home or self-care (01) ==
PROVIDERS: PCP Emergency Medicine
DX: S39.012A Strain of muscle, fascia and tendon of lower back, initial encounter (principal); X58.XXXA Exposure to other specified factors, initial encounter; F41.9 Anxiety disorder, unspecified; F32.A Depression, unspecified
CPT/HCPCS: 99213; G0463

== ENCOUNTER 2024-09-05 09:10 | Outpatient (CLI) | payer OTHER, SELFPAY ==
--- NOTE | ~2024-09-05 | MR_ITS ---
EXAMINATION: MR hip LT wo con DATE: 09/05/2024 10:16 INDICATION: Left hip pain and sciatica TECHNIQUE: 1. Magnetic resonance imaging (MRI) of the left hip was performed without intravenous contrast. Seque nces included full-field axial PD-weighted FS FSE and T1-weighted FSE, coronal of the pelvis with PD- weighted FS FSE, T2-weighted FSE and T1-weighted FSE, small field of view of the left hip with axial PD-weighted FS FSE, sagittal PD-weighted FS FSE, coronal PD-weighted FS FSE and coronal T2 weighted FSE. Additional radial T1-weighted FGR oriented orthogonal to the acetabular rim were obtained for e valuation of the labrum. 2. MRI of the left femur was obtained without intravenous contrast. Sequences included axial, sagitta l and coronal T1-weighted FSE and fluid sensitive FSE STIR. COMPARISON: None FINDINGS: Bones/labrum/cartilage: Alignment is normal. 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 No fracture, avascular necrosis or pathologic marrow replac ing process. There is a tear at the chondral labral junction of the superolateral left acetabular lab rum which extends 2 cm AP. Mild osteoarthritis with partial-thickness cartilage loss without degenera tive subchondral changes at the posterior aspect of the left hip joint space. Mild lower lumbar spond ylosis with neural foraminal stenosis assessment of the degree of which is limited on the larger fiel d-of-view imaging but likely up to moderate severity. Fluid: Symmetric physiologic amount of fluid within both hip joints. Soft tissues: Normal and symmetric muscle bulk and signal in the pelvis and bilateral thighs. The iliopsoas, glutea l and proximal hamstring tendons are normal. Multiple nabothian cyst versus tunnel cluster at the cer vix. Limited evaluation of visceral organs of the pelvis is otherwise unremarkable including a normal appendix.. No pathologically enlarged pelvic/inguinal lymphadenopathy. IMPRESSION: 1. Mild left hip osteoarthritis with tear at the superolateral left acetabular labrum. 2. Mild lumbar spondylosis. 2 moderate neural from stenosis, so some of which is limited on the large r [id number] imaging. If clinically indicated could consider dedicated lumbar spine MR for more de finitive determination. Reviewed, dictated and finalized at location A. IMPRESSION: 1. Mild left hip osteoarthritis with tear at the superolateral left acetabular labrum. 2. Mild lumbar spondylosis. 2 moderate neural from stenosis, so some of which i s limited on the larger [id number] imaging. If clinically indicated could co nsider dedicated lumbar spine MR for more definitive determination.
--- NOTE | ~2024-09-05 | MR_ITS ---
EXAMINATION: MR femur LT wo con DATE: 09/05/2024 10:16 INDICATION: Left hip pain and sciatica TECHNIQUE: 1. Magnetic resonance imaging (MRI) of the left hip was performed without intravenous contrast. Seque nces included full-field axial PD-weighted FS FSE and T1-weighted FSE, coronal of the pelvis with PD- weighted FS FSE, T2-weighted FSE and T1-weighted FSE, small field of view of the left hip with axial PD-weighted FS FSE, sagittal PD-weighted FS FSE, coronal PD-weighted FS FSE and coronal T2 weighted FSE. Additional radial T1-weighted FGR oriented orthogonal to the acetabular rim were obtained for e valuation of the labrum. 2. MRI of the left femur was obtained without intravenous contrast. Sequences included axial, sagitta l and coronal T1-weighted FSE and fluid sensitive FSE STIR. COMPARISON: None FINDINGS: Bones/labrum/cartilage: Alignment is normal. 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 No fracture, avascular necrosis or pathologic marrow replac ing process. There is a tear at the chondral labral junction of the superolateral left acetabular lab rum which extends 2 cm AP. Mild osteoarthritis with partial-thickness cartilage loss without degenera tive subchondral changes at the posterior aspect of the left hip joint space. Mild lower lumbar spond ylosis with neural foraminal stenosis assessment of the degree of which is limited on the larger fiel d-of-view imaging but likely up to moderate severity. Fluid: Symmetric physiologic amount of fluid within both hip joints. Soft tissues: Normal and symmetric muscle bulk and signal in the pelvis and bilateral thighs. The iliopsoas, glutea l and proximal hamstring tendons are normal. Multiple nabothian cyst versus tunnel cluster at the cer vix. Limited evaluation of visceral organs of the pelvis is otherwise unremarkable including a normal appendix.. No pathologically enlarged pelvic/inguinal lymphadenopathy. IMPRESSION: 1. Mild left hip osteoarthritis with tear at the superolateral left acetabular labrum. 2. Mild lumbar spondylosis. 2 moderate neural from stenosis, so some of which is limited on the large r [id number] imaging. If clinically indicated could consider dedicated lumbar spine MR for more de finitive determination. Reviewed, dictated and finalized at location A. IMPRESSION: 1. Mild left hip osteoarthritis with tear at the superolateral left acetabular labrum. 2. Mild lumbar spondylosis. 2 moderate neural from stenosis, so some of which i s limited on the larger [id number] imaging. If clinically indicated could co nsider dedicated lumbar spine MR for more definitive determination.
== END 2024-09-05 09:11 | disposition home or self-care (01) ==
LOC: GOSHIMG 09:10
PROVIDERS: PCP Emergency Medicine; Visit Provider Emergency Medicine
DX: M16.12 Unilateral primary osteoarthritis, left hip (principal); S73.192A Other sprain of left hip, initial encounter; X58.XXXA Exposure to other specified factors, initial encounter; M47.816 Spondylosis without myelopathy or radiculopathy, lumbar region; M48.061 Spinal stenosis, lumbar region without neurogenic claudication; M54.30 Sciatica, unspecified side
CPT/HCPCS: 73718; 73721